=== PATIENT | male | born 1955 | race Caucasian/White ===

== ENCOUNTER 2021-09-04 12:42 | Emergency (ER) | payer BC ==
[~2021-09-04] VITALS: Ht 165.1 cm; Wt 104.3 kg
[2021-09-04 13:10] LABS: HEMOGLOBIN 18.4 gm/dl (14.0-17.5); RED BLOOD COUNT 5.97 M/UL (4.20-5.50); WHITE BLOOD COUNT 9.5 K/UL (4.5-11.0)
[2021-09-04 13:42] LABS: BUN/CREATININE RATIO 17 (0-10)
== END 2021-09-04 18:09 | disposition home or self-care (01) ==
LOC: ER1 12:42
PROVIDERS: Student in an Organized Health Care Education/Training Program
DX: I10 Essential (primary) hypertension (principal); E11.9 Type 2 diabetes mellitus without complications
CPT/HCPCS: 71045; 80053; 82550; 82553; 84484; 85025; 85379; 93005; 99284; J7030